=== PATIENT | female | born 1960 | race Caucasian/White ===

== ENCOUNTER → 2017-05-13 | Outpatient (CLI) | payer MEDICARE ==
[~2017-05-13] MED LIST: ALBU8.5H3 IH; ALEN70TA5 PO; BENZ100C4 PO; CEFP200T PO; CYCL10TA2 PO; GABA300C10 PO; LEVO500T8 PO; NAPR500T3 PO; OMEP40CA6 PO; POTA10CA PO; PRED10TA PO; TRAM50TA PO; ZAFI20TA12 PO
--- NOTE | 2017-05-13 14:00 | DIREP ---
COMPARISON:[facility], CR, XRAY KNEE 1-2 VWS-LT, 08/29/2015, 08:45 PM. INDICATIONS:M79.662 PAIN LLE FINDINGS: BONES:Old fracture of the tibial plateau. Possible hairline fracture of the proximal tibial shaft. JOINTS:DJD of the knee joint. SOFT TISSUES:Normal. OTHER:No additional findings. CONCLUSION:Possible hairline fracture of the proximal left tibia. Old tibial plateau fracture. Dictated by: Anshu Redding M.D. on 05/13/2017 at 01:55 PM
--- NOTE | 2017-05-13 14:29 | DIREP ---
PROCEDURE:US DUPLEX EXTREM VEINS UNILATER/LIMITED-LT COMPARISON:None. INDICATIONS:PAIN, EDEMA LLE R60.0, M79.662 TECHNIQUE:The left lower extremity was evaluated utilizing hanson scale images with segmental compression, color Doppler, and spectral Doppler with respiratory variation and augmentation. FINDINGS: Common femoral vein:Patent Superficial femoral vein:Patent Popliteal vein:Patent Anterior tibial vein:Patent Posterior tibial vein:Patent Greater saphenous vein:Patent Waveforms are within normal limits. No cystic avascular structure is seen within the left popliteal fossa, consistent with a Acevedo's cyst. This measures 2.0 x 1.9 x 1.4 cm. CONCLUSION: 1. No evidence of DVT within the left lower extremity. 2. 2 cm Acevedo's cyst in the left popliteal fossa. Dictated by: Cezar Hodge M.D. On 05/13/2017 at 02:24 PM
== END | disposition home or self-care (01) ==
LOC: RAD 13:27
PROVIDERS: ATTEND Nurse Practitioner Family
DX: M71.22 Synovial cyst of popliteal space [Baker], left knee (principal); R60.0 Localized edema
CPT/HCPCS: 73590-LT; 93971

== ENCOUNTER 2017-09-17 02:30 | Day surgery (SDC) | payer MEDICARE ==
[2017-09-17] VITALS (19 sets, daily range): BP systolic 110–170; BP diastolic 60–105
[~2017-09-17] VITALS: Ht 152.4 cm; Wt 65.8 kg
[~2017-09-17 02:30] MED LIST changes: -ALBU8.5H3 IH; +ALBU8.5H7 IH; +BENZ100C17 PO; -BENZ100C4 PO; -NAPR500T3 PO; +NAPR500T4 PO
[2017-09-17] MEDS ORDERED: NS 250ML 250 ML IV ONE (05:17)
[2017-09-17] MEDS ORDERED: VANCOMYCIN HCL 1 GM ONE (05:17)
[2017-09-17] MEDS ORDERED: LACTATED RINGERS 1,000 ML ONE ×2 (05:17→06:47)
[2017-09-17] MEDS ORDERED: DECADRON ONE ×3 (06:45→13:51)
[2017-09-17] MEDS ORDERED: ZOFRAN ONE (06:46)
[2017-09-17] MEDS ORDERED: TORADOL ONE (06:46)
[2017-09-17] MEDS ORDERED: XYLOCAINE ONE ×3 (06:46→13:52)
[2017-09-17] MEDS ORDERED: VERSED ONE (06:47)
[2017-09-17] MEDS ORDERED: DIPRIVAN IV ONE (06:47)
[2017-09-17] MEDS ORDERED: SUBLIMAZE ONE (06:47)
[2017-09-17] MEDS ORDERED: DILAUDID ONE (06:48)
[2017-09-17] MEDS ORDERED: VANCOMYCIN 1,000 MG in NS 100ML 100 ML IV ONE (07:30)
[2017-09-17] MEDS: LACTATED RINGERS 1,000 ML IV SCH ×3 (07:52→12:16)
[2017-09-17] MEDS ORDERED: TYLENOL PO ONE ×2 (07:53→08:00)
[2017-09-17] MEDS ORDERED: DILAUDID IV PRN ×3 (08:00→13:00)
[2017-09-17] MEDS ORDERED: SUBLIMAZE IV PRN ×2 (08:00→10:30)
[2017-09-17 08:08] LABS: CARBON DIOXIDE 23.3 mmol/L (20.0-32)
[2017-09-17] MEDS ORDERED: NAROPIN 5% 5 MG/ML VIAL ONE ×2 (09:29→13:51)
[2017-09-17] MEDS ORDERED: SODIUM CHLORIDE IR ONE (09:59)
[2017-09-17] MEDS ORDERED: TRANDATE IV ONE (12:41)
[2017-09-17] MEDS ORDERED: TRANDATE IV STA (12:50)
[2017-09-17] MEDS ORDERED: ACET-687 PO (12:57)
--- NOTE | 2017-09-17 13:04 | OPH ---
DATE OF SURGERY: 09/17/2017 PREOPERATIVE DIAGNOSIS: Nonunion left proximal tibia fracture. POSTOPERATIVE DIAGNOSIS: Nonunion left proximal tibia fracture. OPERATIVE PROCEDURE: Open reduction-internal fixation using a 10-hole Synthes lateral tibial locking plate. SURGEON: Alireza Lee MD ANESTHESIA: LMA TOURNIQUET TIME: 63 minutes at 300 mmHg DRAINS: None BLOOD LOSS: 150 mL DESCRIPTION OF INDICATIONS: The patient is a 56-year-old female who injured her left tibia 3 months ago. She has a fracture in the proximal third of the tibia. Basically, it initially started as a nondisplaced and she was treated in a long leg cast. At first, she did not want surgery. The patient continued to have gross motion at the fracture site as well as pain. 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 DESCRIPTION OF PROCEDURE: She was taken to the operating room today for an open reduction-internal fixation. DESCRIPTION OF PROCEDURE: The patient was placed on the operating table in the supine position. LMA anesthetic was induced without difficulty. The patient had a well-padded tourniquet placed around the left thigh. The left lower extremity was then sterilely prepped and draped. The patient had the leg exsanguinated with an Esmarch and then the tourniquet was inflated to 300 mmHg. The patient's knee was flexed to 90 degrees. An anterolateral incision was made about the lateral joint line, extending down the proximal anterolateral crest of the tibia and the tibial tubercle. A small portion of the anterior compartment was opened. We used an elevator to elevate some of the soft tissue off of the lateral border of the proximal tibia, down past the fracture site. We then passed the 10-hole Synthes locking plate, submuscular, down the shaft of the tibia. AP and lateral views showed satisfactory length of the plate as well as satisfactory positioning. We stabilized the plate proximally with some K-wires. We then used a 6.5 cancellous screw proximal to the fracture, to pull the plate down to the bone. More distal to the fracture, we made a small stab wound and placed a 4.5 cortical screw to pull the plate down to the bone. The plate alignment and the fracture alignment appeared satisfactory. At that point, we placed 2 more locking screws distally at the percutaneous stab wound. We then placed 3 locking screws proximally to stabilize the proximal portion. Final AP and lateral views showed that the hardware was in satisfactory position as was the fracture. I elected not to open the fracture site because it had hypertrophic callus about the fracture site. The patient then had the wounds irrigated. The fascia was closed with a #1 Vicryl in an interrupted [id number] manner, the subcutaneous, proximally, was closed with a 2-0 Monocryl in an interrupted manner, and the skin, of all the rest of the wounds, was closed with a staple gun. A compressive dressing and a used splint was applied. The patient was extubated in the operating room and sent to recovery in a stable condition. Alireza Lee MD DR: KD/alpa JOB# [id number]
[2017-09-17] MEDS ORDERED: NORCO 5MG PO ONE ×2 (13:15→13:18)
[2017-09-17] MEDS ORDERED: BENADRYL PO ONE ×2 (13:50)
--- NOTE | 2017-09-17 15:37 | DIREP ---
PROCEDURE:XRAY TIB & FIB 2 VW-LT COMPARISON:[facility], , XRAY TIB & FIB 2 VW-LT, 05/13/2017, 01:40 PM. INDICATIONS:POST ORIF FINDINGS: BONES:Sclerosis proximal diametaphyseal region of the tibia. Oblique fracture plane with extensive periostitis. Status post ORIF with lateral screw plate combination through the tibial plateau extending to the mid diaphysis JOINTS:Normal. SOFT TISSUES:Soft tissue herve OTHER:No additional findings. CONCLUSION:Screw sideplate combination applied to the proximal tibial diaphyseal persistent fracture with sclerosis. Dictated by: Maria Isabel Nava MD on 09/17/2017 at 03:33 PM
== END 2017-09-17 14:45 | disposition home or self-care (01) ==
LOC: SURG 02:30
PROVIDERS: ATTEND Orthopaedic Surgery
DX: S82.102A Unspecified fracture of upper end of left tibia, initial encounter for closed fracture (principal); X58.XXXA Exposure to other specified factors, initial encounter; Y93.89 Activity, other specified; Y92.89 Other specified places as the place of occurrence of the external cause; Y99.8 Other external cause status; J45.909 Unspecified asthma, uncomplicated; F41.9 Anxiety disorder, unspecified; M19.90 Unspecified osteoarthritis, unspecified site; E66.3 Overweight; Z88.0 Allergy status to penicillin; Z83.3 Family history of diabetes mellitus; Z80.9 Family history of malignant neoplasm, unspecified; Z79.899 Other long term (current) drug therapy; Z68.28 Body mass index [BMI] 28.0-28.9, adult
CPT/HCPCS: 27720; 36415; 73590; 76000; 80048; J1100 ×3; J1170; J1885; J2250; J2405; J2795 ×2; J3010; J3490 ×4; J7030; J7050; J7120 ×2; Q0163; C1713; C1769

== ENCOUNTER → 2018-04-29 | Outpatient (CLI) | payer MEDICARE ==
[~2018-04-29] MED LIST changes: +ACET-687 PO; +BENZ-14 PO; -BENZ100C17 PO; +NAPR-636 PO; -NAPR500T4 PO
--- NOTE | 2018-04-29 12:58 | DIREP ---
PROCEDURE:US DUPLEX EXTREM VEINS UNILATER/LIMITED-LT COMPARISON:[facility], , DUPLEX EXTREM VEINS UNILATER/LIMITED-LT, 05/13/2017, 01:49 PM. INDICATIONS:PAIN LLE, EDEMA LLE TECHNIQUE:The left lower extremity was evaluated utilizing hanson scale images with segmental compression, color Doppler, and spectral Doppler with respiratory variation and augmentation. FINDINGS: Common femoral vein:Patent Profunda femoris vein:Patent Superficial femoral vein:Patent Popliteal vein:Patent Posterior tibial vein:Patent Peroneal vein:Patent Greater saphenous vein:Patent Waveforms are within normal limits. CONCLUSION: No DVT identified in the left lower extremity. Dictated by: JUAN JOSE Physician on 04/29/2018 at 11:43 AM ld
== END | disposition home or self-care (01) ==
LOC: RAD 10:47
PROVIDERS: ATTEND Nurse Practitioner Family
DX: M79.662 Pain in left lower leg (principal); R60.0 Localized edema
CPT/HCPCS: 93971

== ENCOUNTER → 2020-07-29 | Outpatient (CLI) | payer MEDICARE ==
[~2020-07-29] MED LIST changes: -ALEN70TA5 PO; +ALEN70TA6 PO; +LEXISCAN IV ONE; +OMEP40CA41 PO; -OMEP40CA6 PO
--- NOTE | 2020-07-29 13:32 | PCM.ECHO ---
APPROVED REPORT EXAM: Comprehensive 2D, Doppler, and color-flow Echocardiogram. Patient Location: OUT-PATIENT Rhythm: NSR Indications Palpitations 2D Dimensions LVOT Diameter 2.13 (1.8-2.4cm) LVEF(%) 60.21 (>50%) M-Mode Dimensions RVDd 0.80 (2.1-3.2cm) Left Atrium(MM) 3.90 (2.5-4.0cm) IVSd 1.15 (0.7-1.1cm) Aortic Root 2.90 (2.2-3.7cm) LVDd 5.80 (4.0-5.6cm) Aortic Cusp Exc 2.15 (1.5-2.0cm) PWd 0.50 (0.7-1.1cm) MV EPSS 1.20 (<0.5cm) IVSs 1.80 cm FS (%) 37.85 % LVDs 3.60 (2.0-3.8cm) ESV(Teich) 54.58 ml PWs 1.40 cm LVEF(%) 67.24 (>50%) Volumes Biplane 2D LV Volumes Biplane 2D LA Volumes LVEDv A4C 68.63 mL LA ESV Index LVESv A4C 27.31 mL Aortic Valve AoV Peak Tushar. 1.10 m/s AoV VTI 19.45 cm AO Peak GR. 4.90 mmHg AO Mean GR. 2.85 mmHg LVOT VTI 22.09 cm LVOT Peak Tushar. 0.81 m/s ARSALAN(VTI)/BSA 4.05 cm2/m2 ARSALAN (VTI) 4.05 cm2 Mitral Valve MV E Velocity 0.75m/s MR Peak Gr. 13.70mmHg MV A Velocity 1.00m/s TDI Lateral E' P. V 0.08m/s Medial E' P. V 0.08m/s Pulmonary Valve PV Peak Velocity 0.85m/s PV Peak Grad. 3.20mmHg RVOT VTI 19.09cm Tricuspid Valve TR P. Velocity 2.20m/s RAP ESTIMATE 10.00mmHg TR Peak Gr. 19.53mmHg RVSP 29.53mmHg LEFT VENTRICLE The left ventricle is normal size. The left ventricular systolic function is normal. The left ventricular ejection fraction is within the normal range. There is normal left ventricular wall thickness. There is normal LV segmental wall motion. There is no ventricular septal defect visualized. No left ventricle thrombus noted on this study. LVEF is 60-65%. RIGHT VENTRICLE The right ventricle is normal size. The right ventricular systolic function is normal. There is normal right ventricular wall thickness. ATRIA The left atrium size is normal. The right atrium size is normal. The interatrial septum is intact with no evidence for an atrial septal defect. AORTIC VALVE The aortic valve is normal in structure. There is no aortic valvular stenosis. No aortic regurgitation is present. There is no aortic valvular vegetation. MITRAL VALVE The mitral valve is normal in structure. There is no mitral valve stenosis. Mild mitral regurgitation. There is no evidence of mitral valve vegetations. TRICUSPID VALVE The tricuspid valve is normal in structure. There is no tricuspid valve stenosis. Mild tricuspid regurgitation. There is no tricuspid valve vegetations. PULMONIC VALVE Pulmonic valve is not well visualized. There is no pulmonic valvular stenosis. There is no pulmonic valvular regurgitation. GREAT VESSELS The aortic root is normal in size. Pulmonary artery is not well visualized. Aortic arch is not well visualized. The IVC is normal in size and collapses >50% with inspiration. PERICARDIUM There is no pericardial effusion. There is no pleural effusion. Other Information Study Quality: Fair <Conclusion> The left ventricular systolic function is normal. LVEF is 60-65%. Mild mitral regurgitation. Mild tricuspid regurgitation. Electronically signed by : GINNA CAI. 07/29/2020 13:31:33
--- NOTE | 2020-07-29 22:37 | STRESS ---
DATE OF SERVICE: 07/29/2020 CARDIAC STRESS TEST INDICATION: Chest pain. Baseline EKG shows normal sinus rhythm with poor R-wave progression, cannot exclude old anteroseptal infarct. Stress EKG shows normal sinus rhythm, unchanged from baseline. At recovery, EKG shows normal sinus rhythm, unchanged from baseline. Baseline blood pressure is 145/89 and remained the same during stress. At recovery, the blood pressure was 163/102. Baseline heart rate is 78 beats per minute and angela to 95 beats per minute during stress. At recovery, the heart rate was 85 beats per minute. Blood pressure and heart rate were appropriate for stress. There were no significant symptoms noted during stress. There were no arrhythmias noted during stress. EKG portion of stress test is negative for myocardial ischemia. Nuclear images, however, revealed a mild area of reversible perfusion defect involving the anterior wall and suggestive of myocardial ischemia. There is no evidence of myocardial infarction. Left ventricular ejection fraction is 75%. EDV is 27 mL, ESV 7 mL. The left ventricle is normal in size. Gated motion images shows normal wall motion across all segments of the left ventricle. TID is 1.5. There is no evidence of diaphragmatic attenuation artifact. IMPRESSION: 1. Mild area of reversible perfusion defect involving the anterior wall and suggestive of myocardial ischemia. There is no evidence of myocardial infarction. 2. Left ventricular ejection fraction of 75%. 3. This is an abnormal study. Recommend left heart catheterization. GINNA CAI D.O. DR: SONJA/alpa JOB# [id number]
== END | disposition home or self-care (01) ==
LOC: RAD 08:57
PROVIDERS: ATTEND Internal Medicine Interventional Cardiology
DX: I08.1 Rheumatic disorders of both mitral and tricuspid valves (principal); I25.2 Old myocardial infarction; R07.9 Chest pain, unspecified; R00.2 Palpitations; R42 Dizziness and giddiness; Q25.49 Other congenital malformations of aorta
CPT/HCPCS: 78452; 93017; 93306; A9500; J2785

== ENCOUNTER 2020-08-15 06:20 | Day surgery (SDC) ==
[2020-08-13 09:30] VITALS: BP 143/85
--- NOTE | 2020-08-13 09:42 | PCM.EKG ---
[facility] Test Date: 2020-08-13 Test Time: 09:40:29 Pat Name: BETO CLAY Department: Room: Gender: F Ict Help Desk Technician: RUSS : 1960 Requested By: GINNA CAI Order Number: [id number] Reading MD: Measurements Intervals [place] Rate: 75 P: 58 CO: 138 QRS: 70 QRSD: 98 T: 66 QT: 382 QTc: 426 Interpretive Statements Normal sinus rhythm No previous ECG available for comparison Please click the below link to view image of tracing.
[2020-08-13 09:55] LABS: BASOPHIL % 0.3 % (0.0-0.2); EOSINOPHIL # 0.2 10^3/uL (0.0-0.2); LYMPHOCYTES # 1.03 10^3/uL1 (1.0-4.8); LYMPHOCYTES % 10.8 % (24.0-44.0); MEAN CORP HGB 27.8 pg (26-34); MONOCYTES # 0.4 10^3/uL (0.3-0.8); MONOCYTES % 4.4 % (5.0-12.0); NEUTROPHIL # 7.8 10^3/uL (1.8-7.7); NEUTROPHILS % 81.7 % (41.0-85.0); PLATELET COUNT 269 10^3/uL (150-400); RED CELL DISTRIBUTION WIDTH 14.4 % (11.5-14.5)
[2020-08-13 10:19] LABS: CALCIUM 9.2 mg/dL (8.4-10.5); CARBON DIOXIDE 23.8 mmol/L (20.0-32)
[2020-08-15] VITALS (10 sets, daily range): BP systolic 117–144; BP diastolic 51–90
[~2020-08-15] VITALS: Ht 149.9 cm; Wt 70.8 kg
[~2020-08-15 06:20] MED LIST changes: -ALEN70TA6 PO; +ALEN70TA65 PO; +GABA600T7 PO; -LEXISCAN IV ONE; +METO25TA4 PO; +NS 1000ML 1,000 ML IV SCH; +NS 1000ML 1,000 ML ONE; +TRAZ-168 PO
[2020-08-15] MEDS ORDERED: HEPARIN ONE (06:23)
[2020-08-15] MEDS ORDERED: VERSED ONE (06:24)
[2020-08-15] MEDS ORDERED: XYLOCAINE ONE (06:24)
[2020-08-15] MEDS ORDERED: SUBLIMAZE ONE (06:24)
--- NOTE | 2020-08-15 09:57 | CCRH ---
DATE OF SERVICE: 08/15/2020 INDICATION FOR PROCEDURE: Abnormal nuclear stress test. HISTORY OF PRESENT ILLNESS: This is a 59-year-old female who was initially seen in the outpatient setting with symptoms of chest discomfort. She underwent cardiac ischemic workup, which revealed reversible perfusion defect suggestive of myocardial ischemia. In view of these, she was set up for left heart catheterization to rule out obstructive CAD. Informed consents were obtained and the patient was taken to the cardiac catheterization suite. PROCEDURES PERFORMED: 1. Selective coronary angiography. 2. Left ventriculography. 3. Hemostasis established using a 6-Par[place]ayan MynxGrip. PROCEDURAL DETAILS: Access was obtained using a 4-[place]ayan micropuncture kit to cannulate the right radial artery. A 4-[place] sheath was then upsized to a 6-Paraguayan regular short sheath. Diagnostic angiography was carried out using the Carri left catheter to engage the left main. The left main was noted to be angiographically normal. It bifurcates into a left anterior descending artery and a left circumflex artery. The left anterior descending artery is noted to have mild luminal irregularities. It gives off 3 diagonal branches that are noted to have mild luminal irregularities. The LAD runs in the interventricular groove wrapping around the apex to form a type 3 LAD. The left circumflex artery is noted to be codominant and with mild luminal irregularities. It gives off a large obtuse marginal branch that is noted to have mild luminal irregularities and continues as the left posterolateral branch. The Carri left catheter was then exchanged for a Carri right, which was used to cross the aortic valve into the left ventricle. Left ventriculography was performed, LVEF was noted to be 65%. LVEDP was noted to be 9. Upon pullback of the catheter, there was no gradient across the aortic valve. The Carri right catheter was then used to engage the RCA. RCA angiography showed a dominant RCA with mild luminal irregularities. The RCA bifurcates distally to an RPL and RPDA branch, both noted to have mild luminal irregularities. The Carri right catheter was then taken out and hemostasis was established using a 6-[place] MynxGrip. The patient left the labeler in stable condition. There were no complications. IMPRESSION: 1. Nonobstructive coronary artery disease. 2. Selective coronary angiography. 3. Left ventriculography. 4. Left ventricular ejection fraction of 65%. 5. Left ventricular end-diastolic pressure of 9. 6. Hemostasis established using a 6-[place] MynxGrip. RECOMMENDATIONS: No coronary intervention is necessary at this time. Lifestyle modification factors have been strongly advised. She will be discharged home later today to follow up with me in the office in 2 weeks. GINNA CAI D.O. DR: SONJA/alpa JOB# [id number]
== END 2020-08-15 11:45 | disposition home or self-care (01) ==
LOC: SDC 06:20
PROVIDERS: ATTEND Internal Medicine Interventional Cardiology
DX: I25.10 Atherosclerotic heart disease of native coronary artery without angina pectoris (principal); I70.213 Atherosclerosis of native arteries of extremities with intermittent claudication, bilateral legs; I87.2 Venous insufficiency (chronic) (peripheral); I47.1 Supraventricular tachycardia; J45.909 Unspecified asthma, uncomplicated; K21.9 Gastro-esophageal reflux disease without esophagitis; Z90.710 Acquired absence of both cervix and uterus; Z90.49 Acquired absence of other specified parts of digestive tract; Z79.899 Other long term (current) drug therapy; Z98.890 Other specified postprocedural states; Z88.1 Allergy status to other antibiotic agents; Z82.5 Family history of asthma and other chronic lower respiratory diseases; Z82.49 Family history of ischemic heart disease and other diseases of the circulatory system; Z80.9 Family history of malignant neoplasm, unspecified
CPT/HCPCS: 36415; 80053; 85025; 85610; 85730; 93005; 93458; 99152; C1769; C1894 ×2; J1644 ×2; J2250; J3010; J7030; Q9967

== ENCOUNTER → 2020-11-25 | Outpatient (CLI) | payer MEDICARE ==
[~2020-11-25] MED LIST changes: -ALEN70TA65 PO; +ALEN70TA76 PO; -NS 1000ML 1,000 ML IV SCH; -NS 1000ML 1,000 ML ONE
--- NOTE | 2020-11-25 10:53 | DIREP ---
PROCEDURE:BONE DENSITY PERIPHERAL COMPARISON:None. INDICATIONS:AGE RELATED OSTEOPEROSIS SCREENING TECHNIQUE:A dual photon bone densitometry was performed in the lumbar spine and in both hips. FINDINGS:There are no previous studies for comparison. The bone density is measured from L1 through L4 is 1.082 grams/cm2. The standard deviation of the T-score is-0.9. The bone density in the left femoral neck is 0.719 grams/cm2. The standard deviation of the T-score is-2.3. The bone density in the right femoral neck is 0.697 grams/cm2. The standard deviation of the T-score is-2.5. Based upon the values in the right hip, the patient has osteoporosis. The 10 year FRAX probability is as follows: The patient has a 3.7% chance of a insufficiency hip fracture and a 19.3% chance of a major osteoporotic fracture. CONCLUSION:Osteoporosis. Ten year FRAX probability as above. Dictated by: Heath Oneal MD on 11/25/2020 at 10:43 AM
== END | disposition home or self-care (01) ==
LOC: BD 09:41
PROVIDERS: ATTEND Nurse Practitioner Family
DX: M81.0 Age-related osteoporosis without current pathological fracture (principal)
CPT/HCPCS: 77080

== ENCOUNTER 2021-11-30 16:31 | Emergency (ER) | payer MEDICARE ==
[~2021-11-30] VITALS: Ht 152.4 cm; Wt 70.3 kg
[~2021-11-30 16:31] MED LIST changes: +CYCL10TA19 PO; -CYCL10TA2 PO; -LEVO500T8 PO; +LEVO500T9 PO; -OMEP40CA41 PO; +OMEP40CA8 PO
[2021-11-30 19:37] LABS: BILIRUBIN,URINE 2+ (NEGATIVE)
[2021-11-30 21:04] VITALS: BP 142/84
[2021-11-30] MEDS ORDERED: ZOFRAN IV STA (21:14)
[2021-11-30] MEDS ORDERED: SUBLIMAZE IV STA (21:14)
[2021-11-30] MEDS ORDERED: NS 1000ML 1,000 ML IV STA (21:14)
--- NOTE | 2021-11-30 21:22 | ER.PDOC ---
General Chief Complaint: Abdomen Pain Stated Complaint: ABD PAIN Time seen by MD: 21:19 Source: patient Exam Limitations: no limitations History of Present Illness Initial Comments Patient is a 60-year-old woman who presents the emergency department with chief complaint of abdominal pain, nausea, diarrhea that began around 5:00 last night. She states she has upper abdominal pain that is constant, crampy, nonradiating. She states she had nausea but no vomiting. She states she has had 5-6 episodes of watery diarrhea. She denies any black or bloody stools. She denies any dysuria, frequency, urgency, hematuria. She denies any nasal congestion, sore throat, cough. She denies any sick contacts or unusual food. Timing/Duration: 24 hours Severity/Quality: moderate, cramping Radiation: epigastric Associated Symptoms: diarrhea, nausea/vomiting Exacerbated by: nothing Relieved By: nothing Allergies: Coded Allergies: Penicillins (Unverified Allergy, Severe, Rash, 08/13/20) egg (Unverified Allergy, Severe, NAUSEA, IBS, 08/13/20) montelukast (Verified Allergy, Intermediate, Rash, 08/13/20) Home Meds Reported Medications Metoprolol Tartrate 25MG (LOPRESSER 25MG) 25 Mg Tablet, 1 TAB PO BID, #180 TAB 1 Refill 08/13/20 Gabapentin (GABAPENTIN) 600 Mg Tablet, 1 TAB PO BID, #90 TAB 3 Refills 08/13/20 Trazodone Hcl (TRAZODONE HCL) 100 Mg Tablet, 1 TAB PO HS PRN for INSOMNIA, #30 TAB 1 Refill 08/13/20 Benzonatate (BENZONATATE) 100 Mg Capsule, 100 MG PO DAILY, CAPSULE 08/21/14 Tramadol Hcl (TRAMADOL HCL) 50 Mg Tablet, 2 TAB PO HS, #60 TAB 08/21/14 Omeprazole (OMEPRAZOLE) 40 Mg Capsule.dr, 1 CAP PO DAILY, #30 CAP 3 Refills 08/21/14 Albuterol Sulfate (PROAIR HFA) 8.5 Gm Hfa.aer.ad, 8.5 GM IH PRN PRN for WHEEZING 08/21/14 Prednisone (PREDNISONE) 10 Mg Tablet, 10 MG PO DAILY, TABLET 08/21/14 Zafirlukast (ZAFIRLUKAST) 20 Mg Tablet, 20 MG PO BID, TABLET 08/21/14 Alendronate Sodium (ALENDRONATE SODIUM) 70 Mg Tablet, 70 MG PO ONCE A WEEK, TABLET 08/21/14 Vital Signs First Vital Signs Date Time Temp Pulse Resp B/P (MAP) Pulse Ox O2 Delivery O2 Flow Rate FiO2 11/30/21 21:04 99.5 117 20 11/30/21 21:04 142/84 (103) 91 Room Air Last Vital Signs Date Time Temp Pulse Resp B/P (MAP) Pulse Ox O2 Delivery O2 Flow Rate FiO2 11/30/21 21:04 99.5 117 20 91 11/30/21 21:04 142/84 (103) Room Air Past Medical History Medical History: asthma, COPD, diabetes, emphysema, hypertension Surgical History: appendectomy, cholecystectomy, hysterectomy, knee, tonsillectomy Family History Significant Family History: lung disease Social History Smoking: non-smoker Alcohol Use: none Drug Use: none Constitutional: denies fever EENTM: denies nose congestion, denies throat pain Respiratory: denies cough, denies shortness of breath Cardiovascular: denies chest pain Gastrointestinal: abdominal pain, diarrhea, nausea; denies rectal bleeding, denies vomiting Genitourinary: denies dysuria, denies frequency, denies hematuria Musculoskeletal: denies back pain Skin: denies rash Psychiatric/Neurological: denies anxiety All Other Systems: Reviewed and Negative Physical Exam General Appearance: No Apparent Distress, WD/WN HEENT: PERRL/EOMI, Normal ENT Inspection, TMs Normal, Pharynx Normal (dry mucous membranes) Neck: Non-Tender, Full Range of Motion, Supple, Normal Inspection Respiratory: chest non-tender, normal breath sounds, no respiratory distress, no accessory muscle use, wheezing (diffuse) Cardiovascular: Normal Peripheral Pulses, Regular Rate, Rhythm, No Edema, No Murmur Gastrointestinal: Normal Bowel Sounds, Soft, Tenderness (epigastric) Back: Normal Inspection, No CVA Tenderness, No Vertebral Tenderness Extremities: Normal Range of Motion, Non-Tender, Normal Inspection, No Pedal Edema, No Calf Tenderness, Normal Capillary Refill, Pelvis Stable Neurologic/Psychiatric: investor relations manager II-XII NML as Tested, No Motor/Sensory Deficits, Alert, Normal Mood/Affect, Oriented x 3 Skin: Normal Color, Warm/Dry Results/Orders Results/Orders Orders - NELLIE RICHARD MD Urinalysis (11/30/21 19:15) Urine Culture (11/30/21 19:25) Cbc With Auto Diff (11/30/21 21:14) Comprehensive Metabolic Panel (11/30/21 21:14) Lipase (11/30/21 21:14) Helicobacter Pylori (11/30/21 21:14) Ct Abd/Pel With Iv Contrast (11/30/21 21:14) Urinalysis (11/30/21 21:14) Saline Lock (11/30/21 21:14) 0.9 % Sodium Chloride (Ns 1000ml) (11/30/21 21:14) Ondansetron Hcl/Pf (Zofran) (11/30/21 21:14) Fentanyl Citrate/Pf (Sublimaze) (11/30/21 21:14) 0.9 % Sodium Chloride (Ns 1000ml) (11/30/21 21:25) Ondansetron Hcl/Pf (Zofran) (11/30/21 21:25) Fentanyl Citrate/Pf (Sublimaze) (11/30/21 21:26) Covid19 Antigen Shani Delfina (11/30/21 23:52) Vital Signs Date Time Temp Pulse Resp B/P (MAP) Pulse Ox O2 Delivery O2 Flow Rate FiO2 11/30/21 21:04 99.5 117 20 91 11/30/21 21:04 99.5 117 20 142/84 (103) 91 Room Air 11/30/21 21:04 99.5 117 20 Administered Medications Medications (Trade) Dose Ordered Sig/Barb Route PRN Reason Start Time Stop Time Status Last Admin Dose Admin Fentanyl Citrate (Sublimaze) 50 mcg OT STAT IV 11/30/21 21:14 11/30/21 21:19 DC 11/30/21 21:40 50 MCG Ondansetron HCl (Zofran) 4 mg OT STAT IV 11/30/21 21:14 11/30/21 21:19 DC 11/30/21 21:40 4 MG Sodium Chloride 1,000 ml @ 0 mls/hr Q0M STAT IV 11/30/21 21:14 11/30/21 21:19 DC 11/30/21 21:40 1,000 MLS/HR Laboratory Tests Test 11/30/21 19:25 11/30/21 21:40 11/30/21 23:55 Urine Collection Type RANDOM Urine Color AME Urine Appearance HAZY Urine Bilirubin 2+ (NEGATIVE) H Urine Ketones 2+ (NEGATIVE) H Urine Specific [place] >=1.030 (1.005-1.030) Urine pH 5.0 (4.5-8.0) Urine Protein 1+ (NEGATIVE) H Urine Urobilinogen 2.0 E.U./dL (0.2) Urine Nitrate NEGATIVE (NEGATIVE) Urine Leukocyte Esterase TRACE (NEGATIVE) H Urine Glucose (Auto)(UA) NEGATIVE (NEGATIVE) Urine Blood TRACE-INTACT (NEGATIVE) H Urine RBC 2-5 RBC/HPF (NONE SEEN) Urine WBC 5-10 WBC/HPF (0-2) H Urine Squamous Epithelial Cells MODERATE (<=FEW) Urine Bacteria MODERATE (NONE SEEN) H White Blood Count 6.9 10^3/uL (4.5-11.0) Red Blood Count 5.11 10^6/uL (4.00-5.20) Hemoglobin 13.9 g/dL (12.0-15.0) Hematocrit 44.7 % (36.0-46.0) Mean Corpuscular Volume 87.5 fL (78-100) Mean Corpuscular Hemoglobin 27.2 pg (26-34) Mean Corpuscular Hemoglobin Concent 31.1 g/dL (33-36.5) L Red Cell Distribution Width 14.7 % (11.5-14.5) H Platelet Count 228 10^3/uL (150-400) Mean Platelet Volume 10.1 fL (7.8-11.0) Neutrophils (%) (Auto) 59.4 % (41.0-85.0) Lymphocytes (%) (Auto) 17.9 % (24.0-44.0) L Monocytes (%) (Auto) 19.9 % (5.0-12.0) H Neutrophils # (Auto) 4.1 10^3/uL (1.8-7.7) Lymphocytes # (Auto) 1.23 10^3/uL1 (1.0-4.8) Monocytes # (Auto) 1.4 10^3/uL (0.3-0.8) H Absolute Immature Granulocyte (auto 0.08 10^3 u/L (0-2) Absolute Eosinophils (auto) 0.1 10^3/uL (0.0-0.2) Immature Granulocytes % 1.20 % (0.00-0.50) H Eosinophils % 0.9 % (0.0-5.0) Basophils % 0.7 % (0.0-0.2) H Basophils # 0.1 10^3/uL (0.0-0.1) Sodium Level 138 mmol/L (132-145) Potassium Level 3.6 mmol/L (3.6-5.2) Chloride Level 103.0 mmol/L (96-109) Carbon Dioxide Level 23.7 mmol/L (20.0-32) Anion Gap 14.9 Blood Urea Nitrogen 13 mg/dL (7-18) Creatinine 0.98 mg/dL (0.59-1.40) Estimated GFR () 69.8 (>/=60) Est GFR (CKD-EPI)(Non-Afr Cam[place]onian) 57.7 (>/=60) BUN/Creatinine Ratio 13.0 Glucose Level 89 mg/dL (70-110) Calcium Level 8.7 mg/dL (8.4-10.5) Total Bilirubin 1.7 mg/dL (0.2-1.0) H Aspartate Amino Transferase (AST) 42 U/L (0-35) H Alanine Aminotransferase (ALT) 54 U/L (12-78) Alkaline Phosphatase 65 U/L (50-136) Total Protein 7.8 g/dL (6.4-8.2) Albumin 3.1 g/dL (3.4-5.0) L Globulin 4.7 Albumin/Globulin Ratio 0.659 Lipase 50 U/L (114-286) L Helicobacter pylori Screen NEGATIVE (NEGATIVE) SARS-CoV-2 Antigen (Rapid) NEGATIVE (NEGATIVE) Progress Progress Patient had an IV established and was given 1 L normal saline, Zofran 4 mg IV, fentanyl 50 mcg IV with significant improvement in her symptoms. Patient CBC was unremarkable. Patient's CMP was unremarkable except for mild AST elevation of 42. Her H. pylori was negative. Her COVID antigen was negative. Her UA showed moderate bacteria but she had moderate squames, 2+ ketones, 2+ bilirubin consistent with dehydration. Due to her abdominal pain she underwent CT of the abdomen pelvis which showed colonic diverticulosis without findings of diverticulitis and was otherwise unremarkable per the radiologist. I did view the patient's images.Patient's COVID was negative. On reevaluation prior to discharge she states her symptoms are much improved and she would like to go home. Patient appears to have vomiting, diarrhea, abdominal pain of unclear etiology. She does not appear to have acute cholecystitis, pancreatitis, perforated intestine, small bowel obstruction, aortic dissection, aortic a neurysm, pyelonephritis, kidney stone, appendicitis, diverticulitis, dehydration, sepsis, or other serious etiology of her symptoms. Patient will be discharged home. ER DEPART Departure Time of Disposition: 00:58 Disposition: 01 HOME / SELF CARE / HOMELESS Impression: Primary Impression: Vomiting and diarrhea Additional Impression: Abdominal pain Condition: Improved Referrals: KATELYNN WALL MEDICAL REFERRAL COORDINATOR (PCP) PRIMARY CARE PROVIDER Additional Instructions: Return immediately if worse abdominal pain, persistent vomiting, bloody diarrhea, fever. Drink lots of fluids. Avoid spicy/greasy foods, nicotine, caffeine, alcohol. Zofran as prescribed for nausea and vomiting. Imodium [id number] as needed for diarrhea. Follow-up with primary care physician in 2 to 3 days. Duration or Time Spent with Pa: 30 min Problem Qualifiers Additional Impression: Abdominal pain Abdominal location: generalized Qualified Codes: R10.84 - Generalized abdominal pain NELLIE RICHARD MD Nov 30, 2021 21:22
[2021-11-30] MEDS ORDERED: NS 1000ML 1,000 ML ONE (21:25)
[2021-11-30] MEDS ORDERED: ZOFRAN ONE (21:25)
[2021-11-30] MEDS ORDERED: SUBLIMAZE ONE (21:26)
[2021-11-30 21:54] LABS: BASOPHIL # 0.1 10^3/uL (0.0-0.1); BASOPHIL % 0.7 % (0.0-0.2); EOSINOPHIL # 0.1 10^3/uL (0.0-0.2); EOSINOPHIL % 0.9 % (0.0-5.0); LYMPHOCYTES # 1.23 10^3/uL1 (1.0-4.8); LYMPHOCYTES % 17.9 % (24.0-44.0); MEAN CORP HGB 27.2 pg (26-34); MONOCYTES # 1.4 10^3/uL (0.3-0.8); MONOCYTES % 19.9 % (5.0-12.0); NEUTROPHIL # 4.1 10^3/uL (1.8-7.7); NEUTROPHILS % 59.4 % (41.0-85.0); PLATELET COUNT 228 10^3/uL (150-400); RED CELL DISTRIBUTION WIDTH 14.7 % (11.5-14.5)
[2021-11-30 22:12] LABS: CARBON DIOXIDE 23.7 mmol/L (20.0-32)
--- NOTE | 2021-11-30 22:58 | DIREP ---
PROCEDURE:CT ABDOMEN/PELVIS W/ CONTRAST COMPARISON:None. INDICATIONS:abdominal pain TECHNIQUE:Axial images were created through the abdomen and pelvis with non-ionic intravenous contrast material. No oral contrast was administered. Sagittal and coronal reconstructions were performed from source images. There is patient motion on the exam which is limiting. FINDINGS: LUNG BASES:Opacities in the lingula may represent atelectasis. There is a small focus of tree-in-bud opacity at the lateral aspect of the left lower lobe, may represent infectious or inflammatory bronchiolitis. LIVER:No hepatic lesion. Portal and hepatic veins are patent. BILIARY:Cholecystectomy, no intra or extrahepatic biliary dilation. PANCREAS:Unremarkable. SPLEEN:Normal, nonenlarged. KIDNEYS:No renal mass. No hydronephrosis or collecting system stone identified. ADRENALS:Normal. AORTA/VASCULAR:Normal. No aneurysm or dissection. RETROPERITONEUM:No adenopathy or mass. BOWEL/MESENTERY:No evidence of small bowel obstruction. Appendix not visualized, no pericecal inflammatory changes to suggest appendicitis. Colonic diverticulosis, predominantly involving the sigmoid colon. No imaging evidence of diverticulitis. ABDOMINAL WALL:Normal. No mass or hernia. URINARY BLADDER: Inherently limited evaluation of the wall; unremarkable for level of distension. PELVIS:Status post hysterectomy, no adnexal mass. No adenopathy. BONES:Bilateral rib fractures with evidence of healing. Moderate to severe intervertebral disc height loss at L2-L3. OTHER:No free air or fluid. CONCLUSION: Colonic diverticulosis without CT findings of diverticulitis. Dictated by: Carolee Thomas MD on 11/30/2021 at 10:54 PM
--- NOTE | 2021-12-01 00:41 | NUR ---
COVID RESULTS NEGATIVE, EDP NOTIFIED
--- NOTE | 2021-12-01 01:15 | NUR ---
IV DC'D BY PATIENT, TIP INTACT, NO BLEEDING
[2021-12-01 01:20] VITALS: BP 140/78
== END 2021-12-01 01:20 | disposition home or self-care (01) ==
LOC: ER 16:31
DX: R10.13 Epigastric pain (principal); R11.2 Nausea with vomiting, unspecified; R19.7 Diarrhea, unspecified; I10 Essential (primary) hypertension; E11.9 Type 2 diabetes mellitus without complications; J44.9 Chronic obstructive pulmonary disease, unspecified; Z20.822 Contact with and (suspected) exposure to COVID-19; Z79.52 Long term (current) use of systemic steroids; Z79.899 Other long term (current) drug therapy; Z88.0 Allergy status to penicillin; Z90.49 Acquired absence of other specified parts of digestive tract; Z90.710 Acquired absence of both cervix and uterus
CPT/HCPCS: 36415; 74177; 80053; 81001; 83690; 85025; 86677; 87086; 87426; 96361; 96374; 96375; 99285; J2405; J3010; J7030; Q9965

== ENCOUNTER → 2023-04-29 | Outpatient (CLI) | payer MEDICARE ==
[~2023-04-29] MED LIST changes: +LEVO-16 PO; -LEVO500T9 PO; -POTA10CA PO; +POTA10CA76 PO; +ZAFI20TA PO; -ZAFI20TA12 PO
--- NOTE | 2023-04-29 15:49 | DIREP ---
PROCEDURE:US SOFT TISSUE ABDOMINAL WALL COMPARISON:[facility], CT, CT ABD/PELVIS W/ CONTRAST, 11/30/2021, 10:34 PM. INDICATIONS:R22.2 SUBCUTANEOUS NODULE OF ABDOMINAL WALL TECHNIQUE:Transverse and longitudinal sonographic images of the right and left mid abdominal wall were obtained at the sites of palpable concern. Limited color Doppler evaluation was performed. FINDINGS: There is an ill-defined focus of slightly increased echogenicity within the superficial subcutaneous tissues of the right mid abdominal wall at the site of palpable concern, measuring approximately 1.6 x 1.4 x 1.1 cm. This structure is avascular and could represent contusion of the sequela of prior subcutaneous injection And ovoid structure is seen in the left mid abdominal wall of the 2nd site of palpable concern, measuring 4.9 x 3.7 x 1.5 cm. This structure is hypovascular and isoechoic to the adjacent subcutaneous tissues, suggesting either a lipoma or prominent lobule of subcutaneous fat. An ovoid, avascular, hypoechoic nodule is seen within within the superficial subcutaneous tissues of the left mid abdominal wall with a 3rd site of palpable concern, measuring 0.9 x 0.8 x 0.8 cm. This structure is also avascular and could represent a small hematoma or sequela of prior subcutaneous injection. CONCLUSION: 1. 1.6 cm, ill-defined, hyperechoic focus in the right mid abdominal wall, which could represent contusion or the sequela of prior subcutaneous injections. 2. 4.9 cm circumscribed structure in the left mid abdominal wall, which may represent a lipoma or prominent lobule of subcutaneous fat. 3. 0.9 cm, avascular, hypoechoic subcutaneous nodule in the left mid abdominal wall, which may represent a small hematoma or sequela of subcutaneous injections. 4. Correlation with clinical history and physical exam findings is recommended. Dictated by: Cezar Hodge MD on 04/29/2023 at 03:41 PM
== END | disposition home or self-care (01) ==
LOC: RAD 10:03
PROVIDERS: ATTEND Nurse Practitioner Family
DX: R22.2 Localized swelling, mass and lump, trunk (principal)
CPT/HCPCS: 76705